=== PATIENT | female | born 1965 ===

== ENCOUNTER 2017-11-17 21:20 | Emergency (ER) | payer MEDICAID, OTHER ==
[2017-11-17] MEDS ORDERED: Sodium Chloride 0.9% 1,000 ML IV ONE (22:18)
[2017-11-17] MEDS ORDERED: Iohexol 240 (50 ml) PO ONE (22:19)
--- NOTE | 2017-11-17 22:33 | C.PDOC ---
History Of Present Illness 52yo female, comes to ER with complaints of lower abdominal pain x 2 days with associated nausea. She also reports a mild dysuria but denies any associated vomiting or diarrhea. Time Seen by Provider: 11/17/17 22:10 Chief Complaint (Nursing): Abdominal Pain History Per: Patient History/Exam Limitations: no limitations Onset/Duration Of Symptoms: Days Current Symptoms Are (Timing): Still Present Location Of Pain/Discomfort: RLQ, LLQ Associated Symptoms: Nausea. denies: Vomiting, Diarrhea, Urinary Symptoms Additional History Per: Patient Past Medical History Reviewed: Historical Data, Nursing Documentation, Vital Signs Vital Signs: Last Vital Signs Temp 98.3 F 11/17/17 21:57 Pulse 69 11/17/17 21:57 Resp 16 11/17/17 21:57 BP 107/74 11/17/17 21:57 Pulse Ox 100 11/17/17 22:40 - Medical History PMH: Anemia, Depression (NO MED), Gastritis, Hypercholesterolemia (NO MED), Kidney Stones, Migraine (NO MED) Surgical History: Endoscopy (18 mos. ago), Tonsillectomy Family History: States: No Known Family Hx - Social History Hx Alcohol Use: Yes Hx Substance Use: No - Immunization History Hx Tetanus Toxoid Vaccination: No Hx Influenza Vaccination: No Hx Pneumococcal Vaccination: No Review Of Systems Except As Marked, All Systems Reviewed And Found Negative. Constitutional: Negative for: Fever, Chills Gastrointestinal: Positive for: Nausea, Abdominal Pain. Negative for: Vomiting , Diarrhea Genitourinary: Positive for: Dysuria Physical Exam - Physical Exam Appears: Non-toxic Skin: Normal Color Head: Normacephalic Eye(s): bilateral: Normal Inspection Neck: Supple Chest: Symmetrical Cardiovascular: Rhythm Regular Respiratory: Normal Breath Sounds Gastrointestinal/Abdominal: Soft, Tenderness (hypogastric tenderness, bilateral lower quadrant tenderness right > left), No Guarding, No Rebound Back: Normal Inspection Extremity: Normal ROM Neurological/Psych: Oriented x3 ED Course And Treatment - Laboratory Results Result Diagrams: 11/17/17 22:50 11/17/17 23:17 O2 Sat by Pulse Oximetry: 100 (RA) Pulse Ox Interpretation: Normal Progress Note: UA, albs anc CT Abdomen/Pelvis ordered. Patient given IV Bentyl and IV Fluids. Disposition Counseled Patient/Family Regarding: Diagnosis - Disposition Referrals: [facility] [Outside] Disposition: HOME/ ROUTINE Disposition Time: 01:57 Condition: STABLE Prescriptions: Dicyclomine [Bentyl] 10 mg PO QID #14 cap Instructions: Acute Abdomen (Belly Pain), Adult (DC) Forms: [facility] (Urdu), Gen Discharge Inst Sudanese Print Language: DANISH - POA Present On Arrival: None - Clinical Impression Clinical Impression: Abdominal pain - Scribe Statement The provider has reviewed the documentation as recorded by the Dylan Erickson Provider Attestation: All medical record entries made by the Dylan were at my direction and personally dictated by me. I have reviewed the chart and agree that the record accurately reflects my personal performance of the history, physical exam, medical decision making, and the department course for this patient. I have also personally directed, reviewed, and agree with the discharge instructions and disposition.
[2017-11-17] MEDS ORDERED: Sodium Chloride 0.9% 1,000 ML ONE (22:45)
[2017-11-17] MEDS ORDERED: Iohexol 240 (50 ml) ONE (22:46)
[2017-11-17 22:56] LABS: BASO % 0.9 % (0.0-2.0); EOS # 0.1 K/uL (0.0-0.7); EOS % 2.9 % (0.0-4.0); HEMOGLOBIN 13.8 g/dL (11.0-16.0); LYMPH # 1.2 K/uL (1.0-4.3); LYMPH % 25.6 % (20.0-40.0); MEAN CELL VOLUME 88.2 fL (81.0-99.0); MEAN CORPUSCULAR HEMOGLOBIN 29.4 pg (27.0-31.0); MEAN CORPUSCULAR HGB CONC 33.4 g/dL (33.0-37.0); MEAN PLATELET VOLUME 10.8 fL (7.2-11.7); MONO # 0.4 K/uL (0.0-0.8); MONO % 9.6 % (0.0-10.0); NEUT # 2.8 K/uL (1.8-7.0); RBC 4.68 Mil/uL (3.80-5.20); RED CELL DISTRIBUTION WIDTH 14.2 % (11.5-14.5); WHITE BLOOD COUNT 4.6 K/uL (4.8-10.8)
[2017-11-17 22:59] LABS: SQUAMOUS EPITHIAL 6 /hpf (0-5); URINE BACTERIA FEW (<OCC); URINE BILIRUBIN NEGATIVE (NEGATIVE); URINE BLOOD NEGATIVE (NEGATIVE); URINE CLARITY Hazy (Clear); URINE COLOR Yellow (YELLOW); URINE GLUCOSE (UA) NORMAL (Normal); URINE LEUKOCYTE ESTERASE NEG Leu/uL (Negative); URINE PROTEIN NEGATIVE (NEGATIVE); URINE UROBILINOGEN NORMAL mg/dL (0.2-1.0)
[2017-11-17 23:05] LABS: ALB/GLOB RATIO 1.4 (1.0-2.1); ALBUMIN 4.6 g/dL (3.5-5.0); CALCIUM 9.3 mg/dl (8.6-10.4); GFR AFRICAN-AMERICAN > 60; GFR NON-AFRICAN AMERICAN > 60; LIPASE 208 U/L (23-300)
[2017-11-17 23:08] LABS: ALT/SGPT 38 U/L (9-52); AST/SGOT 38 U/L (14-36); BLOOD UREA NITROGEN 12 mg/dL (7-17)
[2017-11-18] MEDS ORDERED: Tramadol 25 mg PO STA (01:59)
[2017-11-18] MEDS ORDERED: Tramadol 25 mg ONE (02:07)
[2017-11-18] MEDS ORDERED: Pantoprazole 40 mg EC Tab PO ONE (02:10)
[2017-11-18] MEDS ORDERED: Pantoprazole 40 mg EC Tab PO STA (02:18)
[2017-11-18 02:22] VITALS: BP 125/76; PULSE 73; RESP 20; TEMP 97.8; O2SAT 98
--- NOTE | 2017-11-18 12:18 | CT ---
Date of service: 11/18/2017 PROCEDURE: CT Abdomen and Pelvis without intravenous contrast HISTORY: abd pain COMPARISON: None. TECHNIQUE: Contiguous images were obtained from the domes of the diaphragms to the upper thighs without the administration of intravenous contrast. Oral contrast was administered. Radiation dose: Total exam DLP = 306.6 mGy-cm. This CT exam was performed using one or more of the following dose reduction techniques: Automated exposure control, adjustment of the mA and/or kV according to patient size, and/or use of iterative reconstruction technique. FINDINGS: LOWER THORAX: Unremarkable. LIVER: Unremarkable. No gross lesion or ductal dilatation. GALLBLADDER AND BILE DUCTS: Unremarkable. PANCREAS: Unremarkable. No gross lesion or ductal dilatation. SPLEEN: Unremarkable. ADRENALS: Unremarkable. No mass. KIDNEYS AND URETERS: Unremarkable. No hydronephrosis. No solid mass. VASCULATURE: Unremarkable. No aortic aneurysm. BOWEL: Unremarkable. No obstruction. No gross mural thickening. APPENDIX: No findings to suggest acute appendicitis. PERITONEUM: Unremarkable. No free fluid. No free air. LYMPH NODES: Unremarkable. No enlarged lymph nodes. BLADDER: Unremarkable. REPRODUCTIVE: Unremarkable. BONES: No acute fracture. OTHER FINDINGS: None. IMPRESSION: No acute abdominal pelvic pathology.
== END 2017-11-18 02:25 | disposition home or self-care (01) ==
LOC: C.ER 21:20
DX: R10.31 Right lower quadrant pain (principal)
CPT/HCPCS: 74176; 80053; 81001; 83690; 84132; 85025; 96372; 96374; 99284; J0500; J2405; J7030; Q9966

== ENCOUNTER 2018-05-31 20:11 | Emergency (ER) | payer MEDICAID, OTHER ==
[2018-05-31 20:21] VITALS: PULSE 84
[2018-05-31] MEDS ORDERED: Sodium Chloride 0.9% 1,000 ML IV ONE (20:38)
[2018-05-31] MEDS ORDERED: Iohexol 300 100 ML IJ ONE (20:50)
[2018-05-31 21:04] LABS: SQUAMOUS EPITHIAL 6 /hpf (0-5); URINE BACTERIA MANY (<OCC); URINE BILIRUBIN NEGATIVE (NEGATIVE); URINE BLOOD NEGATIVE (NEGATIVE); URINE CLARITY Hazy (Clear); URINE COLOR Yellow (YELLOW); URINE GLUCOSE (UA) NORMAL (Normal); URINE LEUKOCYTE ESTERASE 1+ Leu/uL (Negative); URINE PROTEIN NEGATIVE (NEGATIVE); URINE UROBILINOGEN NORMAL mg/dL (0.2-1.0)
[2018-05-31 21:26] LABS: BASO % 0.3 % (0.0-2.0); EOS # 0.1 K/uL (0.0-0.7); EOS % 2.1 % (0.0-4.0); HEMOGLOBIN 13.1 g/dL (11.0-16.0); LYMPH # 0.9 K/uL (1.0-4.3); LYMPH % 21.8 % (20.0-40.0); MEAN CELL VOLUME 90.2 fL (81.0-99.0); MEAN CORPUSCULAR HEMOGLOBIN 29.6 pg (27.0-31.0); MEAN CORPUSCULAR HGB CONC 32.8 g/dL (33.0-37.0); MEAN PLATELET VOLUME 9.7 fL (7.2-11.7); MONO # 0.3 K/uL (0.0-0.8); MONO % 7.1 % (0.0-10.0); NEUT # 2.9 K/uL (1.8-7.0); NEUT % 68.7 % (50.0-75.0); RBC 4.43 Mil/uL (3.80-5.20); RED CELL DISTRIBUTION WIDTH 14.4 % (11.5-14.5); WHITE BLOOD COUNT 4.2 K/uL (4.8-10.8)
[2018-05-31 21:49] LABS: BLOOD UREA NITROGEN 17 mg/dL (7-17); GFR NON-AFRICAN AMERICAN > 60; LIPASE 98 U/L (23-300)
[2018-05-31 21:50] LABS: ALB/GLOB RATIO 1.6 (1.0-2.1); ALBUMIN 4.6 g/dL (3.5-5.0); ALT/SGPT 85 U/L (9-52); AST/SGOT 87 U/L (14-36)
--- NOTE | 2018-05-31 23:31 | C.PDOC ---
History Of Present Illness 53 year old female presents to the ED for evaluation of dysuria, right-sided abdominal pain, and lower back pain which began one day ago. Patient also reports mild nausea. She has not taken anything for pain and denies fever, chills, vomiting, vaginal bleeding/discharge. Time Seen by Provider: 05/31/18 20:21 Chief Complaint (Nursing): Back Pain History Per: Patient History/Exam Limitations: no limitations Onset/Duration Of Symptoms: Hrs Current Symptoms Are (Timing): Still Present Quality Of Discomfort: "Pain" Previous Symptoms: Back Pain Past Medical History Reviewed: Historical Data, Nursing Documentation, Vital Signs Vital Signs: Last Vital Signs Temp 97.5 F L 05/31/18 20:18 Pulse 84 05/31/18 20:18 Resp 14 05/31/18 20:18 BP 95/63 L 05/31/18 20:18 Pulse Ox 98 05/31/18 20:18 - Medical History PMH: Anemia, Depression (NO MED), Gastritis, Hypercholesterolemia (NO MED), Kidney Stones, Migraine (NO MED) Surgical History: Endoscopy (18 mos. ago), Tonsillectomy Family History: States: Unknown Family Hx - Social History Hx Alcohol Use: No Hx Substance Use: No - Immunization History Hx Tetanus Toxoid Vaccination: No Hx Influenza Vaccination: No Hx Pneumococcal Vaccination: No Review Of Systems Constitutional: Negative for: Fever, Chills Gastrointestinal: Positive for: Nausea, Abdominal Pain (right-sided ). Negative for: Vomiting Genitourinary: Positive for: Dysuria. Negative for: Vaginal Discharge, Vaginal Bleeding Musculoskeletal: Positive for: Back Pain (lower) Physical Exam - Physical Exam Appears: Non-toxic, No Acute Distress Skin: Normal Color, Warm, Dry Head: Atraumatic, Normacephalic Eye(s): bilateral: Normal Inspection Oral Mucosa: Moist Neck: Supple Chest: Symmetrical, No Deformity, No Tenderness Cardiovascular: Rhythm Regular, No Murmur Respiratory: Normal Breath Sounds, No Rales, No Rhonchi, No Wheezing Gastrointestinal/Abdominal: Soft, Tenderness (right-sided ), No Guarding, No Rebound Extremity: Normal ROM, Capillary Refill (less than 2 seconds ) Neurological/Psych: Oriented x3, Normal Speech, Normal Cognition ED Course And Treatment - Laboratory Results Result Diagrams: 05/31/18 21:22 05/31/18 21:32 Lab Results: Total Bilirubin 1.0 mg/dL (0.2-1.3) 05/31/18 21:32 AST 87 U/L (14-36) H D 05/31/18 21:32 ALT 85 U/L (9-52) H D 05/31/18 21:32 Alkaline Phosphatase 64 U/L (38-126) 05/31/18 21:32 Total Protein 7.5 g/dL (6.3-8.3) 05/31/18 21:32 Albumin 4.6 g/dL (3.5-5.0) 05/31/18 21:32 Globulin 2.8 gm/dL (2.2-3.9) 05/31/18 21:32 Albumin/Globulin Ratio 1.6 (1.0-2.1) 05/31/18 21:32 Lipase 98 U/L (23-300) 05/31/18 21:32 Urine Color Yellow (YELLOW) 05/31/18 20:57 Urine Clarity Hazy (Clear) 05/31/18 20:57 Urine pH 6.0 (5.0-8.0) 05/31/18 20:57 Ur Specific [place] 1.025 (1.003-1.030) 05/31/18 20:57 Urine Protein Negative mg/dL (NEGATIVE) 05/31/18 20:57 Urine Glucose (UA) Normal mg/dL (Normal) 05/31/18 20:57 Urine Ketones Negative mg/dL (NEGATIVE) 05/31/18 20:57 Urine Blood Negative (NEGATIVE) 05/31/18 20:57 Urine Nitrate Negative (NEGATIVE) 05/31/18 20:57 Urine Bilirubin Negative (NEGATIVE) 05/31/18 20:57 Urine Urobilinogen Normal mg/dL (0.2-1.0) 05/31/18 20:57 Ur Leukocyte Esterase 1+ Gloria/uL (Negative) H 05/31/18 20:57 Urine WBC (Auto) 1 /hpf (0-5) 05/31/18 20:57 Urine RBC (Auto) 1 /hpf (0-3) 05/31/18 20:57 Ur Squamous Epith Cells 6 /hpf (0-5) H 05/31/18 20:57 Urine Bacteria Many (<OCC) H 05/31/18 20:57 O2 Sat by Pulse Oximetry: 98 (on RA ) Pulse Ox Interpretation: Normal - CT Scan/US CT A/P Other Rad Studies (CT/US): Read By Radiologist, Radiology Report Reviewed CT/US Interpretation: EXAM: CT Abdomen and Pelvis with IV contrast. CLINICAL HISTORY: Right sided abd pain. TECHNIQUE: Axial computed tomography images of the abdomen and pelvis with intravenous contrast. CONTRAST: With intravenous contrast. COMPARISON: None provided. FINDINGS: LUNG BASES: The lung bases appear clear. No pleural effusions are seen. LIVER: Unremarkable. GALLBLADDER AND BILE DUCTS: The gallbladder appears within normal limits. No radioopaque gallstones are seen. No biliary ductal dilatation is evident. PANCREAS: Unremarkable. SPLEEN: Unremarkable. ADRENAL GLANDS: Unremarkable. KIDNEYS, URETERS, AND BLADDER: Bladder is decompressed. STOMACH AND BOWEL: Question tiny hiatal hernia. There is constipation in the colon. No small bowel obstruction. APPENDIX: No evidence of acute appendicitis on CT examination. PERITONEUM: No free fluid. No free air. LYMPH NODES: No lymphadenopathy is evident. REPRODUCTIVE: Unremarkable as visualized. VASCULATURE: No evidence of abdominal aortic aneurysm. BONES: There are mild multilevel degenerative spine changes. IMPRESSION: 1. Question tiny hiatal hernia. 2. Constipation in the colon. 3. No convincing evidence for acute pathology. 4. Additional and incidental findings as described. Medical Decision Making Medical Decision Making: Progress: Bloodwork, urinalysis, CT A/P ordered. Tylenol PO, Pepcid IVP, Macrobid PO, Zofran IVP and IV Fluids given. Disposition - Disposition Referrals: [facility] Clarence Noel, [Non-Staff] - Disposition: HOME/ ROUTINE Disposition Time: 23:25 Condition: GOOD Additional Instructions: CAROLINE CANCHOLA, thank you for letting us take care of you today. The emergency medical care you received today was directed at your acute symptoms. I f you were prescribed any medication, please fill it and take as directed. It may take several days for your symptoms to resolve. Return to the Emergency Department if your symptoms worsen, do not improve, or if you have any other problems. Please contact your doctor or call one of the physicians/clinics you have been referred to that are listed on the Patient Visit Information form that is inclu ded in your discharge packet. Bring any paperwork you were given at discharge with you along with any medications you are taking to your follow up visit. Our treatment cannot replace ongoing medical care by a primary care provider outside of the emergency department. [email or web address] part of your care today. Follow up with your primary care doctor this week for re-evaluation and further management. CAROLINE CANCHOLA, adam por dejarnos cuidar de usted hocelina. La atencin mdica de emergencia que recibi hoy se dirigi a devin sntomas agudos. Si le recetaron algn medicamento, llnelo y tmelo segn las indicaciones. Los sntomas pueden tardar varios bojorquez en resolverse. Regrese al Departamento de Emergencias si devin sntomas empeoran, no mejoran o si tiene otros problemas. Comunquese con ansari mdico o llame a leroy de los mdicos / clnicas a los que marquez sido referido que figuran en el formulario de Informacin de visita al paciente que se incluye en ansari paquete de joe. Lleve todos los documentos que le entregaron al momento del joe junto con todos los medicamentos que est tomando para ansari visita de seguimiento. Nuestro tratamiento no puede reemplazar la atencin mdica continua por un proveedor de atencin primaria fuera del departamento de emergencias. Adam por permitir que el equipo de [facility] sea parte de ansari atencin hoy. Ritchie un seguimiento con ansari mdico de atencin primaria esta semana para reevaluar y administrar ms. Prescriptions: Nitrofurantoin Macrocrystals [Macrobid] 100 mg PO BID #10 cap Instructions: Urinary Tract Infection, Adult (DC) Forms: [employer] (Tunisian) Print Language: YAKUT - Clinical Impression Clinical Impression: UTI (urinary tract infection) - Scribe Statement The provider has reviewed the documentation as recorded by the Scribe (Patricia Zimmer) Provider Attestation: All medical record entries made by the Scribe were at my direction and personally dictated by me. I have reviewed the chart and agree that the record accurately reflects my personal performance of the history, physical exam, medical decision making, and the department course for this patient. I have also personally directed, reviewed, and agree with the discharge instructions and disposition.
[2018-05-31 23:46] VITALS: BP 107/68; RESP 17; TEMP 98.9
[2018-06-01 06:18] VITALS: O2SAT 98
--- NOTE | 2018-06-01 12:51 | CT ---
Date of service: 05/31/2018 PROCEDURE: CT Abdomen and Pelvis with contrast HISTORY: right-sided abdominal pain COMPARISON: Noncontrast abdomen and pelvis CT 11/18/2017. TECHNIQUE: Following the intravenous administration of iodinated contrast material, a CT examination of the abdomen and pelvis was performed from the domes of the diaphragms to the symphysis pubis with reformatted datasets provided in axial, sagittal and coronal planes. Oral contrast was not administered as per referring physician request. Contrast dose: Omnipaque 300, 100 cc Radiation dose: Total exam DLP = 480.77 mGy-cm. This CT exam was performed using one or more of the following dose reduction techniques: Automated exposure control, adjustment of the mA and/or kV according to patient size, and/or use of iterative reconstruction technique. FINDINGS: LOWER THORAX: Unremarkable. LIVER: Unremarkable. No gross lesion or ductal dilatation. GALLBLADDER AND BILE DUCTS: Unremarkable. PANCREAS: Unremarkable. No gross lesion or ductal dilatation. SPLEEN: Unremarkable. ADRENALS: Unremarkable. No mass. KIDNEYS AND URETERS: Unremarkable. No hydronephrosis. No solid mass. VASCULATURE: Unremarkable. No aortic aneurysm. No aortic atherosclerotic calcification or mural plaque present. BOWEL: Evaluation of the gastrointestinal tract is limited due to the lack of oral contrast administration. No bowel obstruction is appreciated. Collapsed limits evaluation of distal and mid small bowel loops as well. Stomach is collapsed and poorly evaluated. No bowel obstruction, pericolic or perienteric reaction appreciated. APPENDIX: Not clearly identified. No CT evidence of appendicitis. PERITONEUM: Unremarkable. No free fluid. No free air. LYMPH NODES: Unremarkable. No enlarged lymph nodes. BLADDER: Unremarkable. REPRODUCTIVE: Unremarkable. BONES: No acute fracture. OTHER FINDINGS: None. IMPRESSION: Unremarkable contrast enhanced CT of the abdomen and pelvis. Preliminary report from [employer], 05/31/2018, 11:19 p.m..
== END 2018-05-31 23:48 | disposition home or self-care (01) ==
LOC: C.ER 20:11
DX: N39.0 Urinary tract infection, site not specified (principal)
CPT/HCPCS: 74177; 80053; 81001; 83690; 85025; 87086; 87181; 96374; 96375; 99283; J2405; J7030; Q9967

== ENCOUNTER 2018-07-08 06:34 | Day surgery (SDC) | payer MEDICAID ==
[2018-07-07 11:07] VITALS: BMI 22.6
--- NOTE | 2018-07-08 08:13 | CP.SDSHP ---
Same Day Surgery H & P - History Proposed Procedure: COLONSCOPY Pre-Op Diagnosis: SEE NOTES - Previous Medical/Surgical History Misc: Other Pain: 4.Moderate Pain - Allergies Allergies: Allergies aspirin Adverse Reaction (Verified 06/11/18 11:23) NAUSEA meperidine HCl [From Demerol] Adverse Reaction (Verified 06/11/18 11:23) FATIGUE hyperactive,and fatigue novaine Adverse Reaction (Uncoded 06/11/18 11:23) FATIGUE hallucinations - Physical Exam General Appearance: N Vital Signs: Vital Signs 07/08/18 06:54 Temperature 97.3 F L Pulse Rate 69 Respiratory 19 Rate Blood Pressure 115/67 O2 Sat by Pulse 99 Oximetry Mental Status: Alert & Oriented x3 Neuro: WNL Heart: WNL Lungs: WNL GI: Other - {Optional Preform as Required} Breast: WNL Abdomen: Other Rectal: Other Integument: WNL : WNL Ortho: WNL ENT: WNL - Impression Pt. Evaluated Today:Candidate for Anesthesia & Procedure: Yes - Date & Time Time: 08:13 Short Stay Discharge - Short Stay Discharge Admitting Diagnosis/Reason for Visit: CHANGE IN BOWEL HABIT Disposition: HOME/ ROUTINE
[2018-07-08] MEDS ORDERED: Midazolam 2 MG/2 ML VIAL ONE (08:20)
[2018-07-08] MEDS ORDERED: Propofol 10 mg/ml Inj (20 ML) ONE (08:20)
[2018-07-08] MEDS ORDERED: Belladonna-Phenobarbital PO ONE (08:30)
[2018-07-08 09:06] VITALS: O2SAT 99
[2018-07-08 09:30] VITALS: RESP 18
[2018-07-08 09:36] VITALS: BP 112/65; PULSE 72; TEMP 97.9
== END 2018-07-08 09:31 | disposition home or self-care (01) ==
LOC: C.ENDO 06:34
PROVIDERS: ATTEND Specialist
DX: R19.4 Change in bowel habit (principal); K52.9 Noninfective gastroenteritis and colitis, unspecified; K64.8 Other hemorrhoids; K58.9 Irritable bowel syndrome, unspecified
CPT/HCPCS: 45380; 88305; J2001; J2250; J2704